=== PATIENT | male | born 1985 | race Caucasian/White ===

== ENCOUNTER 2022-08-17 16:12 | Inpatient (IN) | payer OTHER ==
[2022-08-17 16:52] VITALS: RESP 18; TEMP 99.5; BMI 31.3
[2022-08-17] MEDS ORDERED: ACETAMINOPHEN 325 MG TABLET (FP) PO ONE (18:26)
[2022-08-17 20:46] LABS: BASO % 0.2 % (0-2.0); EOS % 0.5 % (0-4.5); HEMATOCRIT 46.1 % (35.4-49); HEMOGLOBIN 16.1 GM/dL (11.7-16.9); LYMPH % 13.8 % (8-40); MCH 30.1 pg (25.7-33.7); MEAN CELL VOLUME 86.2 fl (80-96); MEAN PLT VOLUME 8.3 fl (7.5-11.1); MONO % 10.1 % (3.8-10.2); NEUT % 75.4 % (42.8-82.8); PLATELET COUNT 191 10^3/uL (134-434); RBC 5.35 M/mm3 (4.00-5.60); RDW 12.9 % (11.9-15.9); WHITE BLOOD COUNT 7.3 K/mm3 (4.0-10.0)
[2022-08-17 21:02] LABS: CALCIUM 9.7 mg/dL (8.5-10.1)
[2022-08-17 21:03] LABS: ALBUMIN 4.2 g/dl (3.4-5.0); BLOOD UREA NITROGEN 11.6 mg/dL (7-18)
[2022-08-17 21:05] LABS: CREATININE 1.1 mg/dL (0.55-1.3)
[2022-08-17 21:07] LABS: TOT PROT 9.1 g/dl (6.4-8.2)
[2022-08-17 21:08] LABS: BILIRUBIN,TOTAL 0.6 mg/dL (0.2-1)
[2022-08-17] MEDS ORDERED: valACYclovir HCL 1000 MG TABLET PO ONE (21:45)
[2022-08-17] MEDS ORDERED: PIPERACILLIN/TAZOB 4.5 GM 4.5 GM in DEXTROSE 5%-WATER 100 ML IVPB ONE (22:09)
[2022-08-17 22:12] LABS: HIV INTERPRETATION NEGATIVE (NEGATIVE)
[2022-08-17] MEDS ORDERED: ACYCLOVIR INJECTION 1,000 MG in DEXTROSE 5%-WATER - 100 ML IVPB ONE (22:14)
[2022-08-17] MEDS ORDERED: KETOROLAC TROMETHAMINE 15 MG/ML VIAL IM ONE (22:17)
[2022-08-17] MEDS ORDERED: KETOROLAC TROMETHAMINE 15 MG/ML VIAL ONE (22:21)
[2022-08-17] MEDS ORDERED: PIPERACILLIN/TAZOB 4.5 GM 4.5 GM/100 ML BAG IVPB ONE (22:21)
[2022-08-17] MEDS ORDERED: VANCOMYCIN 1 GM in D5W (PRE-DOCKED) 1,000 MG/250 ML IVPB ONE (22:22)
[2022-08-17] MEDS ORDERED: VANCOMYCIN/WATER FOR INJ (PEG) 1,000 MG/200 ML BAG IVPB ONE (23:08)
[2022-08-17] MEDS ORDERED: ACYCLOVIR 500 MG (50MG/ML) VIAL IVPUSH SCH (23:30)
[2022-08-17] MEDS ORDERED: LACTATED RINGERS SOLUTION 1,000 ML IV SCH (23:30)
[2022-08-17] MEDS ORDERED: ACYCLOVIR INJECTION 900 MG in DEXTROSE 5%-WATER - 250 ML IVPB SCH (23:45)
[2022-08-18] MEDS ORDERED: KETOROLAC TROMETHAMINE 15 MG/ML VIAL IVPUSH PRN (00:01)
[2022-08-18] MEDS ORDERED: ACETAMINOPHEN 1000 MG/100 ML BAG IVPB PRN (01:00)
[2022-08-18 01:13] VITALS: BP 142/88; PULSE 92
[2022-08-18] MEDS ORDERED: oxyCODONE HCL 5 MG TABLET PO PRN (04:04)
[2022-08-18] MEDS ORDERED: GABAPENTIN 300 MG CAPSULE PO SCH (06:00)
[2022-08-18] MEDS ORDERED: ENOXAPARIN NA (PORCINE) 40 MG/0.4 ML DISP.SYRIN SQ SCH (10:00)
[2022-08-18] MEDS ORDERED: predniSONE 20 MG TABLET (UD) PO SCH ×2 (10:00)
[2022-08-25] MEDS ORDERED: predniSONE 20 MG, predniSONE 10 MG PO SCH (10:00)
[2022-09-01] MEDS ORDERED: predniSONE 10 MG, predniSONE 5 MG PO SCH (10:00)
== END 2022-08-18 04:43 | disposition left against medical advice (07) | DRG 723 ==
LOC: JER 16:12 → JERBED 22:03
PROVIDERS: ADMIT Internal Medicine
DX: B02.7 Disseminated zoster (principal); F17.210 Nicotine dependence, cigarettes, uncomplicated; F11.10 Opioid abuse, uncomplicated; R21 Rash and other nonspecific skin eruption; R63.0 Anorexia
CPT/HCPCS: 0241U-QW; 36415; 80053; 85025; 87389; 93005; 93010; 99285-25

== ENCOUNTER 2022-08-18 11:57 | Inpatient (IN) | payer OTHER ==
[2022-08-18] MEDS ORDERED: PIPERACILLIN/TAZOB 4.5 GM 4.5 GM in DEXTROSE 5%-WATER 100 ML IVPB ONE (12:55)
[2022-08-18] MEDS ORDERED: ACYCLOVIR 1000 MG (50MG/ML) VIAL IVPB ONE (12:55)
[2022-08-18] MEDS ORDERED: VANCOMYCIN 1 GM in D5W (PRE-DOCKED) 1,000 MG/250 ML IVPB ONE (12:55)
[2022-08-18] MEDS ORDERED: PIPERACILLIN/TAZOBACTAM 4.5 GM VIAL IVPB ONE (13:14)
[2022-08-18] MEDS ORDERED: VANCOMYCIN 1,000 MG VIAL (RESTRICTED TO ID ONLY) ONE (13:15)
[2022-08-18] MEDS ORDERED: Acyclovir Sodium 1,000 MG in DEXTROSE 5%-WATER - 250 ML IVPB ONE (13:30)
[2022-08-18] MEDS ORDERED: Acyclovir Sodium 1,000 MG in SODIUM CHLORIDE 250 ML IVPB ONE (13:30)
[2022-08-18] MEDS ORDERED: LACTATED RINGERS SOLUTION 1,000 ML/1,000 ML INFUS.BAG IV SCH (17:15)
[2022-08-18 17:16] VITALS: BMI 31.8
[2022-08-18] MEDS: ACETAMINOPHEN 500 MG TABLET (FP) PO PRN (20:02)
[2022-08-18] MEDS ORDERED: ACYCLOVIR 1000 MG (50MG/ML) VIAL IVPB SCH (21:00)
[2022-08-18] MEDS: DEXTROSE 5% IVPB SCH (21:45)
[2022-08-18] MEDS: WATER IVPB SCH (21:45)
[2022-08-18] MEDS: ACYCLOVIR SODIUM IVPB SCH (21:45)
[2022-08-19] MEDS: ACETAMINOPHEN 500 MG TABLET (FP) PO PRN (02:58)
[2022-08-19] MEDS: WATER IVPB SCH ×3 (05:55→21:00)
[2022-08-19] MEDS: ACYCLOVIR SODIUM IVPB SCH ×3 (05:55→21:00)
[2022-08-19] MEDS: DEXTROSE 5% IVPB SCH ×3 (05:55→21:00)
[2022-08-19 08:23] LABS: HEMATOCRIT 42.1 % (35.4-49); HEMOGLOBIN 14.6 G/dL (11.7-16.9); MCH 30.3 pg (25.7-33.7); MCHC 34.8 g/dl (32.0-35.9); MEAN CELL VOLUME 87.1 fl (80-96); MEAN PLT VOLUME 8.5 fl (7.5-11.1); PLATELET COUNT 159.8 10^3/uL (134-434); RBC 4.83 10^6/uL (4.00-5.60); WHITE BLOOD COUNT 5.5 10^3/uL (4.0-10.8)
[2022-08-19 08:26] LABS: MAGNESIUM 1.9 mg/dL (1.8-2.4); PHOSPHOROUS 3.6 mg/dl (2.5-4.9)
[2022-08-19] MEDS ORDERED: methaDONE HCL 10 MG TABLET (FOR DETOX USE ONLY) PO SCH ×2 (10:00→10:30)
[2022-08-19] MEDS ORDERED: ENOXAPARIN NA (PORCINE) 40 MG/0.4 ML DISP.SYRIN SQ SCH (10:00)
[2022-08-19] MEDS ORDERED: methaDONE HCL 10 MG TABLET (FOR DETOX USE ONLY) PO STA (10:19)
[2022-08-19] MEDS ORDERED: methaDONE HCL 40 MG DISPERSABLE TABLET PO STA (10:36)
[2022-08-19] MEDS: GABAPENTIN 100 MG CAPSULE PO SCH (13:58)
[2022-08-19 22:34] VITALS: RESP 18
[2022-08-20] MEDS: GABAPENTIN 100 MG CAPSULE PO SCH ×2 (05:50→05:51)
[2022-08-20] MEDS: DEXTROSE 5% IVPB SCH (05:51)
[2022-08-20] MEDS: WATER IVPB SCH (05:51)
[2022-08-20] MEDS: ACYCLOVIR SODIUM IVPB SCH (05:51)
[2022-08-20] MEDS ORDERED: methaDONE HCL 40 MG DISPERSABLE TABLET PO SCH (06:00)
[2022-08-20 06:59] VITALS: BP 134/97; PULSE 68; TEMP 98.1
[2022-08-20 09:15] LABS: HEMATOCRIT 42.3 % (35.4-49); HEMOGLOBIN 14.7 G/dL (11.7-16.9); MCH 30.3 pg (25.7-33.7); MCHC 34.8 g/dl (32.0-35.9); MEAN CELL VOLUME 87.1 fl (80-96); MEAN PLT VOLUME 8.3 fl (7.5-11.1); PLATELET COUNT 189.5 10^3/uL (134-434); RBC 4.86 10^6/uL (4.00-5.60); RDW 13.4 % (11.9-15.9)
[2022-08-20 09:16] LABS: ALBUMIN 3.8 g/dl (3.4-5.0); BILIRUBIN,TOTAL 0.6 mg/dl (0.2-1); TOT PROT 7.7 g/dl (6.4-8.2)
== END 2022-08-20 11:26 | disposition home or self-care (01) | DRG 723 ==
LOC: FER 11:57 → FM/S 13:16
PROVIDERS: ADMIT Internal Medicine; ATTEND Internal Medicine
DX: B02.7 Disseminated zoster (principal); F11.20 Opioid dependence, uncomplicated; F17.210 Nicotine dependence, cigarettes, uncomplicated; M25.512 Pain in left shoulder
CPT/HCPCS: 36415; 80048; 80053; 83735; 84100; 85027; 86787; 87040; 99285-25